=== PATIENT | female | born 1975 | race Caucasian/White ===

== ENCOUNTER 2017-04-29 12:49 | Emergency (ER) | payer MEDICAID ==
[2017-04-29 13:09] VITALS: BP 111/51; PULSE 51; RESP 16; TEMP 98.1; O2SAT 98
--- NOTE | 2017-04-29 13:44 | EDPHY ---
H & P Stated Complaint: fentanyl w/d Time Seen by Provider: 04/29/17 13:35 HPI/ROS: CHIEF COMPLAINT: Opiate withdrawal HISTORY OF PRESENT ILLNESS: The patient is a 42-year-old female who states she is trying to stop opiate use. She had been on fentanyl patches until 5 days ago. She was seen at the [facility] and given a prescription for clonidine to help with her symptoms. She states that this helped significantly but that she is on her last pill today. Her roommate took her pulse and felt that her her rate was in the 40s. They became concerned about withdrawal and called an ambulance. Here her heart rate has been in the 60s and has stable vital signs. She reports to me that she is currently asymptomatic. She would like a refill of her clonidine. REVIEW OF SYSTEMS: Constitutional: denies: chills, fever, recent illness, recent injury EENTM: denies: blurred vision, double vision, nose congestion Respiratory: denies: cough, shortness of breath Cardiac: denies: chest pain, irregular heart rate, lightheadedness, palpitations Gastrointestinal/Abdominal: denies: abdominal pain, diarrhea, nausea, vomiting, blood streaked stools Genitourinary: denies: dysuria, frequency, hematuria, pain Musculoskeletal: denies: joint pain, muscle pain Skin: denies: lesions, rash, jaundice, bruising Neurological: denies: headache, numbness, paresthesia, tingling, dizziness, weakness Hematologic/Lymphatic: denies: blood clots, easy bleeding, easy bruising Immunologic/allergic: denies: HIV/AIDS, transplant EXAM: GENERAL: Well-appearing, well-nourished and in no acute distress. HEAD: Atraumatic, normocephalic. EYES: Pupils equal round and reactive to light, extraocular movements intact, sclera anicteric, conjunctiva are normal. ENT: TMs normal, nares patent, oropharynx clear without exudates. Moist mucous membranes. NECK: Normal range of motion, supple without lymphadenopathy or JVD. LUNGS: Breath sounds clear to auscultation bilaterally and equal. No wheezes rales or rhonchi. HEART: Regular rate and rhythm without murmurs, rubs or gallops. ABDOMEN: Soft, nontender, normoactive bowel sounds. No guarding, no rebound. No masses appreciated. BACK: No CVA tenderness, no spinal tenderness, step-offs or deformities EXTREMITIES: Normal range of motion, no pitting or edema. No clubbing or cyanosis. NEUROLOGICAL: Cranial nerves II through XII grossly intact. Normal speech, normal gait. 5/5 strength, normal movement in all extremities, normal sensation PSYCH: Normal mood, normal affect. SKIN: Warm, dry, normal turgor, no visible rashes or lesions. Source: Patient Exam Limitations: No limitations - Personal History LMP (Females 10-55): Unknown Current Tetanus Diphtheria and Acellular Pertussis (TDAP): Unsure - Medical/Surgical History Hx Asthma: No Hx Chronic Respiratory Disease: No Hx Diabetes: No Hx Cardiac Disease: No Hx Renal Disease: No Hx Cirrhosis: No Hx Alcoholism: No Hx HIV/AIDS: No Hx Splenectomy or Spleen Trauma: No Other PMH: "unknown neurological disorder" - Social History Smoking Status: Never smoked Alcohol Use: Sober Drug Use: Other Constitutional: Initial Vital Signs Temperature (C) 36.7 C 04/29/17 13:06 Heart Rate 51 L 04/29/17 13:06 Respiratory Rate 16 04/29/17 13:06 Blood Pressure 111/51 L 04/29/17 13:06 O2 Sat (%) 98 04/29/17 13:06 O2 Delivery Mode Room Air Allergies/Adverse Reactions: Penicillins Allergy (Verified 04/29/17 13:09) Home Medications: Medication Instructions Recorded Ondansetron Odt [Zofran Odt 4 mg 4 mg PO Q4 PRN #10 tab 04/29/17 (RX)] clonIDINE [Catapres (*)] 0.1 mg PO Q6-8PRN PRN #7 tab 04/29/17 Medical Decision Making ED Course/Re-evaluation: The patient is essentially here for prescription refill. We also discussed other options. I will give her anti nausea medicine as well. She has stable vital signs and no complaints at this time. We discussed indications for returning. Differential Diagnosis: Partial list of the Differential diagnosis considered include but were not limited to; opiate abuse, withdrawal, anxiety, arrhythmia and although unlikely based on the history and physical exam, I also considered infection, head injury. I discussed these differential diagnoses and the plan with the patient as well as the usual and expected course. The patient understands that the diagnosis is provisional and that in medicine we are not always correct and that further workup is often warranted. Usual and customary warnings were given. All of the patient's questions were answered. The patient was instructed to return to the emergency department should the symptoms at all worsen or return, otherwise to followup with the physician as we discussed. Departure - Departure Disposition: Home, Routine, Self-Care Clinical Impression: Opiate withdrawal Condition: Fair Instructions: Clonidine (By mouth), Polysubstance Abuse (ED) Referrals: ELINA PICKERING [Other] - As per Instructions Prescriptions: clonIDINE [Catapres (*)] 0.1 mg PO Q6-8PRN PRN #7 tab PRN Reason: Agitation Ondansetron Odt [Zofran Odt 4 mg (RX)] 4 mg PO Q4 PRN #10 tab PRN Reason: Nausea & Vomiting
== END 2017-04-29 13:35 | disposition home or self-care (01) ==
DX: F11.23 Opioid dependence with withdrawal (principal)

== ENCOUNTER 2017-05-02 00:25 | Emergency (ER) | payer MEDICAID ==
[2017-05-02] MEDS ORDERED: HALOPERIDOL LACT 5 MG/ML INJ IM ONE (00:27)
[2017-05-02] MEDS ORDERED: HALOPERIDOL LACT 5 MG/ML INJ ONE (00:27)
[2017-05-02] MEDS ORDERED: NS 1,000 ML IV ONE (00:28)
--- NOTE | 2017-05-02 00:32 | EDPHY ---
H & P Time Seen by Provider: 05/02/17 00:50 HPI/ROS: HPI CHIEF COMPLAINT: Alcohol intoxication, combative behavior, spitting, biting HISTORY OF PRESENT ILLNESS: The patient is a 42-year-old female, she presents emergency room agitated combative and intoxicated with alcohol. She arrives in 4 point restraints. She is spitting and biting. Upon arrival she is intoxicated alcohol. She is extremely aggressive with staff requiring security at bedside. Also requiring 4 point restraints. She is trying to bite staff. Spitting at staff. I have ordered her 10 mg IM Haldol for staff says safety as well as the patient's safety. Unclear how much alcohol or drug she has had tonight. She will not answer any of my questions. Past Medical History: Alcohol use, history of heroin use Past Surgical History: Denies recent surgery Social History: Alcohol use and heroin use Family History: Unknown ROS REVIEW OF SYSTEMS: Limited due to patient's clinical intoxication and aggressive behavior. Exam Constitutional aggressive, combative, agitated, intoxicated, triage nursing summary reviewed, vital signs reviewed, awake/alert. Eyes normal conjunctivae and sclera, EOMI, PERRLA. HENT normal inspection, atraumatic, moist mucus membranes, no epistaxis, neck supple/ no meningismus, no raccoon eyes. Respiratory clear to auscultation bilaterally, normal breath sounds, no respiratory distress, no wheezing. Cardiovascular rate normal, regular rhythm, no murmur, no edema, distal pulses normal. Gastrointestinal soft, non-tender, no rebound, no guarding, normal bowel sounds, no distension, no pulsatile mass. Genitourinary no CVA tenderness. Musculoskeletal no midline vertebral tenderness, full range of motion, no calf swelling, no tenderness of extremities, no meningismus, good pulses, neurovascularly intact. Skin pink, warm, & dry, no rash, skin atraumatic. Neurologic intoxicated, agitated, aggressive and combative behavior, spitting and biting. Psychiatric aggressive Heme/Lymph/Immune no lymphadenopathy. Differential Diagnosis: Includes but is not limited to in a particular order drug intoxication, alcohol intoxication, drug overdose, aggressive behavior, underlying mental illness Medical Decision Making: Plan for this patient she will require 4 point restraints given how aggressive and combative she is. She required additionally IM Haldol 10 mg for sedation. This for patient's safety as well as staff safety. After she is appropriately sedated will obtain blood work including alcohol level drug screen. Re-evaluate. Re-evaluation: 0325: Patient received 10 mg IM Haldol for acute agitation. She is now resting comfortably. Vital signs are stable. Full quality assurance monitor. Heart rate 73, pulse ox 97% on room air. Patient is sleeping. 0428: Patient is now up ambulating without any difficulty. Stable gait. She is much more calm and pleasant. She is no longer hostile. She has no complaints and is ready for discharge. Source: Patient, EMS - Medical/Surgical History Hx Asthma: No Hx Chronic Respiratory Disease: No Hx Diabetes: No Hx Cardiac Disease: No Hx Renal Disease: No Hx Cirrhosis: No Hx Alcoholism: No Hx HIV/AIDS: No Hx Splenectomy or Spleen Trauma: No Other PMH: "unknown neurological disorder" - Social History Smoking Status: Never smoked Constitutional: Initial Vital Signs Temperature (C) 36.6 C 05/02/17 00:47 Heart Rate 80 05/02/17 00:47 Respiratory Rate 16 05/02/17 00:47 Blood Pressure 102/58 L 05/02/17 00:47 O2 Sat (%) 96 05/02/17 00:47 O2 Delivery Mode Room Air Allergies/Adverse Reactions: Penicillins Allergy (Verified 05/02/17 00:46) Home Medications: Medication Instructions Recorded Ondansetron Odt [Zofran Odt 4 mg 4 mg PO Q4 PRN #10 tab 04/29/17 (RX)] clonIDINE [Catapres (*)] 0.1 mg PO Q6-8PRN PRN #7 tab 04/29/17 Medical Decision Making - Data Points Medications Given: Discontinued Medications Haloperidol Lactate (Haldol Injection) 10 mg IM EDNOW ONE Stop: 05/02/17 00:28 Last Admin: 05/02/17 00:54 Dose: 10 mg Sodium Chloride (Ns) 1,000 mls @ 0 mls/hr IV ONCE ONE PRN Reason: Wide Open Stop: 05/02/17 00:29 Last Admin: 05/02/17 01:07 Dose: Not Given Departure - Departure Disposition: Home, Routine, Self-Care Clinical Impression: Alcoholic intoxication Qualifiers: Complication of substance-induced condition: uncomplicated Qualified Code(s): F10.920 - Alcohol use, unspecified with intoxication, uncomplicated Instructions: Alcohol Intoxication (ED), Abuse of Alcohol (ED) Referrals: NONE *PRIMARY CARE P,. [Primary Care Provider] - As per Instructions
[2017-05-02 00:54] VITALS: RESP 16; TEMP 97.9; O2SAT 96
[2017-05-02 04:45] VITALS: BP 110/66; PULSE 74
== END 2017-05-02 04:59 | disposition home or self-care (01) ==
LOC: EDUNIT#
DX: F10.920 Alcohol use, unspecified with intoxication, uncomplicated (principal)
CPT/HCPCS: J1630

== ENCOUNTER 2017-05-17 18:38 | Emergency (ER) | payer MEDICAID ==
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
[2017-05-17 19:06] VITALS: BP 125/75
== END 2017-05-17 19:14 | disposition home or self-care (01) ==
LOC: EDSEX 18:38 → MERGE 18:38
DX: F10.920 Alcohol use, unspecified with intoxication, uncomplicated (principal)

== ENCOUNTER 2017-06-26 09:40 | Emergency (ER) | payer SELFPAY ==
[2017-06-26 10:08] VITALS: BP 106/75
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
== END 2017-06-26 11:55 | disposition left against medical advice (07) ==
LOC: EEVIPCON 09:40
DX: T74.21XA Adult sexual abuse, confirmed, initial encounter (principal); S00.83XA Contusion of other part of head, initial encounter; Y07.9 Unspecified perpetrator of maltreatment and neglect; Y99.8 Other external cause status; Y93.89 Activity, other specified

== ENCOUNTER 2017-06-27 00:40 | Emergency (ER) | payer SELFPAY ==
[2017-06-27 00:45] VITALS: BP 99/70
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
[2017-06-27] MEDS ORDERED: CHLORDIAZEPOXIDE 25MG PREPK#6 BTL TAKEHOME ONE (02:46)
== END 2017-06-27 04:46 | disposition home or self-care (01) ==
DX: F10.239 Alcohol dependence with withdrawal, unspecified (principal)

== ENCOUNTER 2017-11-04 08:12 | Emergency (ER) | payer MEDICAID ==
[2017-11-04] MEDS ORDERED: HALOPERIDOL LACT 5 MG/ML INJ IM ONE (08:18)
[2017-11-04] MEDS ORDERED: LORazepam 2 MG/ML INJ IM ONE (08:18)
--- NOTE | 2017-11-04 08:21 | EDPHY ---
H & P Source: Patient Exam Limitations: Intoxication - Medical/Surgical History Hx Asthma: No Hx Chronic Respiratory Disease: No Hx Diabetes: No Hx Cardiac Disease: No Hx Renal Disease: No Hx Cirrhosis: No Hx Alcoholism: Yes Hx HIV/AIDS: No Hx Splenectomy or Spleen Trauma: No Other PMH: MS, FIBROMYALGIA, DEPRESSION, PTSD, ANXIETY, alcohol abuse, opiate abuse, meth abuse - Social History Smoking Status: Never smoked Alcohol Use: Heavy Drug Use: Other Time Seen by Provider: 11/04/17 08:12 HPI/ROS: CHIEF COMPLAINT: Hallucinate HISTORY OF PRESENT ILLNESS: The patient is a 42-year-old female with a history of bipolar, depression, PTSD, alcohol and polysubstance abuse who comes to the emergency department stating that she is hallucinating. Her boyfriend called police. She is alert and somewhat combative and had to be restrained. She however is smiling and laughing and talking about smiley faces and other things that she is hallucinating about. She also has a history of MS and fibromyalgia on chronic pain medication. She denied to paramedics taking any hallucinogens. No trauma. No reports of fever or recent illness. Severity: Severe Modifying factors: None REVIEW OF SYSTEMS: Unable to obtain secondary to condition EXAM: GENERAL: Happy, slightly combative, restrained. HEAD: Atraumatic, normocephalic. EYES: Pupils equal round and reactive to light, extraocular movements intact, sclera anicteric, conjunctiva are normal. ENT: TMs normal, nares patent, oropharynx clear without exudates. Moist mucous membranes. NECK: Normal range of motion, supple without lymphadenopathy or JVD. LUNGS: Breath sounds clear to auscultation bilaterally and equal. No wheezes rales or rhonchi. HEART: Regular rate and rhythm without murmurs, rubs or gallops. ABDOMEN: Soft, nontender, normoactive bowel sounds. No guarding, no rebound. No masses appreciated. BACK: No CVA tenderness, no spinal tenderness, step-offs or deformities EXTREMITIES: Normal range of motion, no pitting or edema. No clubbing or cyanosis. NEUROLOGICAL: Cranial nerves II through XII grossly intact. Normal speech. 5/ 5 strength, normal movement in all extremities, normal sensation, normal reflexes PSYCH: Unable to assess, talking and shouting but overall pleasant demeanor SKIN: Warm, dry, normal turgor, no visible rashes or lesions. (Omkar Murcia) Constitutional: Initial Vital Signs Temperature (C) 36.6 C 11/04/17 08:12 Heart Rate 126 H 11/04/17 08:12 Respiratory Rate 20 11/04/17 08:12 Blood Pressure 129/100 H 11/04/17 08:12 O2 Sat (%) 96 11/04/17 08:12 O2 Delivery Mode Room Air Allergies/Adverse Reactions: Penicillins Allergy (Verified 05/02/17 00:46) Home Medications: Medication Instructions Recorded Buspar (*) 06/26/17 Gabapentin 06/26/17 Oxybutynin Chloride 06/26/17 Oxycodone HCl 06/26/17 Paxil 06/26/17 fentaNYL 06/26/17 Medical Decision Making ED Course/Re-evaluation: 2152: Patient re-evaluate this time she is calm and cooperative. She denies wanting to hurt herself or anybody else she is not suicidal homicidal. 4: [facility] spoke with her and spoke with , patient has longstanding history of mental health including polysubstance abuse, previous SI x5, and close relatives with commit suicide including her brother possible father. Patient has a history of PTSD, depression, substance abuse patient will need mental health evaluation. Plan will be for mental health evaluation this morning. Patient signed over at 11:00 p.m. Shift change to Dr. Lance. Pending evl. (Nils Kirkland) 6:50 a.m.- The patient was evaluated by the mental health provider. M1 hold can be dropped at this time. The patient is now awake and alert, here with her boyfriend who feels comfortable taking her home. She does not meet criteria for an M1 hold. She was [facility]. She is a client at [facility] and has a treating psychiatrist. (Neda Lance) 2:00 p.m. the patient is improving. She is somewhat sleepy from the Haldol but is no longer hallucinating and can answer questions appropriately. Her boyfriend is here with her now. We discussed her history of substance abuse and that often times she has similar symptoms with substance abuse. She does have a history of bipolar and PTSD but has never had schizophrenia. He is not aware of previous hallucinations from psychiatric disorders in the absence of substances. I suspect that she is simply intoxicated and will continue to await sobriety. If she is acting normal and sober and a couple of hours will plan to lift her hold and discharge her home with her boyfriend. 2:55 p.m. Care transferred to Dr. Nils Kirkland. (Omkar Murcia) Differential Diagnosis: Partial list of the Differential diagnosis considered include but were not limited to; polysubstance abuse, bipolar, hallucinations and although unlikely based on the history and physical exam, I also considered head injury, infection , seizure. I discussed these differential diagnoses and the plan with the patient as well as the usual and expected course. The patient understands that the diagnosis is provisional and that in medicine we are not always correct and that further workup is often warranted. Usual and customary warnings were given. All of the patient's questions were answered. The patient was instructed to return to the emergency department should the symptoms at all worsen or return, otherwise to followup with the physician as we discussed. ( Omkar Murcia) - Data Points Laboratory Results: Laboratory Results 11/04/17 08:00 11/04/17 08:00 Medications Given: Discontinued Medications Haloperidol Lactate (Haldol Injection) 5 mg IM EDNOW ONE Stop: 11/04/17 08:19 Last Admin: 11/04/17 09:02 Dose: 5 mg Lorazepam (Ativan Injection) 1 mg IM EDNOW ONE Stop: 11/04/17 08:19 Last Admin: 11/04/17 09:03 Dose: 1 mg Departure - Departure Disposition: Home, Routine, Self-Care Clinical Impression: Polysubstance abuse, Bipolar 1 disorder Condition: Fair Instructions: Bipolar Disorder (ED), Polysubstance Abuse (ED) Referrals: Patient,NotPresent [Primary Care Provider] - As per Instructions
[2017-11-04 08:29] LABS: PLATELET COUNT 308 10^3/uL (150-400)
[2017-11-05 07:40] VITALS: BP 113/68
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
--- NOTE | 2017-11-05 08:52 | ASMTTCLDSP ---
TLC Discharge Disposition Disposition: Answers: Discharge If Answers: Yes DISCHARGED: Patient/family given suicide hotline info & SAMHSA brochure? Disposition Notes: Notes: Pt stated commitment or ability to keep self safe, denied thoughts of self harm or harm to others. Pt expressed a desire to f/u with [facility] providers. Pt was given local hotline information and SAMHSA brochure After an Attempt and encouraged to follow up with psychiatrist, Juliane Liu MD at [facility] and therapist, Fallon Pierce at [facility]. Discharge Concerns/Recommendations: Notes: In consultation with [facility] ED physician, Neda Lance MD, Dr. Lance concurred that pt does not appear to meet 27-65 criteria requiring psychiatric hospitalization as pt does not appear to be an imminent risk of harm to self/others/gravely disabled due to a mental illness condition. Dr. Lance provided verbal order read back vacating M1 hold at 0715 hrs. Was patient given the Answers: Not applicable Inpatient Behavioral Health Prohibited Belongings List while in the ED? Psychiatrist vacating M1 Neda Lance MD Hold: Date and time M1 hold 11/05/2017 07:15 AM vacated (time format is hh:mm): Type of Hold: Answers: M1/72-hour Hold Hold initiated by: Answers: Police Date Signed: 11/05/2017 08:52 AM Electronically Signed By:Yogesh Call
== END 2017-11-05 07:38 | disposition home or self-care (01) ==
LOC: EDUNIT#
DX: F19.20 Other psychoactive substance dependence, uncomplicated (principal); F30.2 Manic episode, severe with psychotic symptoms
CPT/HCPCS: 80305; G0480; J1630; J2060

== ENCOUNTER 2017-12-20 00:59 | Emergency (ER) | payer MEDICAID ==
[2017-12-20] MEDS ORDERED: NS 1,000 ML IV ONE (01:05)
--- NOTE | 2017-12-20 01:08 | EDPHY ---
H & P Time Seen by Provider: 12/20/17 01:03 HPI/ROS: CHIEF COMPLAINT: Altered mental status HISTORY OF PRESENT ILLNESS: Patient is a 42-year-old homeless female with a history methamphetamine and fentanyl abuse who was found outside today by her boyfriend. He was concerned and started CPR. When paramedics got there she did have a pulse but was minimally responsive. They gave her Narcan 2 mg with no improvement. Here she denies complaints other than being cold. She denies pain. She states she is not sick. She remains minimally cooperative however. She denies drug or alcohol use today. Severity: Severe Modifying factors: None REVIEW OF SYSTEMS: Unable to obtain secondary to condition EXAM: GENERAL: Shivering, keeping eyes closed, turning head side to side, minimally cooperative HEAD: Atraumatic, normocephalic. EYES: Pupils 2+, equal round and reactive to light, extraocular movements intact, sclera anicteric, conjunctiva are normal. ENT: TMs normal, nares patent, oropharynx clear without exudates. Moist mucous membranes. NECK: Normal range of motion, supple without lymphadenopathy or JVD. LUNGS: Breath sounds clear to auscultation bilaterally and equal. No wheezes rales or rhonchi. HEART: Regular rate and rhythm without murmurs, rubs or gallops. ABDOMEN: Soft, nontender, normoactive bowel sounds. No guarding, no rebound. No masses appreciated. BACK: No CVA tenderness, no spinal tenderness, step-offs or deformities EXTREMITIES: Normal range of motion, no pitting or edema. No clubbing or cyanosis. NEUROLOGICAL: Cranial nerves II through XII grossly intact. Normal speech, normal gait. 5/5 strength, normal movement in all extremities, normal sensation , normal reflexes PSYCH: Uncooperative, SKIN: Warm, dry, normal turgor, no visible rashes or lesions. Source: Patient, EMS Exam Limitations: Intoxication - Medical/Surgical History Hx Asthma: No Hx Chronic Respiratory Disease: No Hx Diabetes: No Hx Cardiac Disease: No Hx Renal Disease: No Hx Cirrhosis: No Hx Alcoholism: Yes Hx HIV/AIDS: No Hx Splenectomy or Spleen Trauma: No Other PMH: MS, FIBROMYALGIA, DEPRESSION, PTSD, ANXIETY, alcohol abuse, opiate abuse, meth abuse - Family History Significant Family History: No pertinent family hx - Social History Smoking Status: Never smoked Alcohol Use: Heavy Drug Use: Other Constitutional: Initial Vital Signs Temperature (C) 36.6 C 12/20/17 01:09 Heart Rate 108 H 12/20/17 01:09 Respiratory Rate 20 12/20/17 01:09 Blood Pressure 117/104 H 12/20/17 01:09 O2 Sat (%) 95 12/20/17 01:09 O2 Delivery Mode Room Air Allergies/Adverse Reactions: Penicillins Allergy (Verified 05/02/17 00:46) Home Medications: Medication Instructions Recorded Buspar (*) 06/26/17 Gabapentin 06/26/17 Oxybutynin Chloride 06/26/17 Oxycodone HCl 06/26/17 Paxil 06/26/17 fentaNYL 06/26/17 Medical Decision Making - Diagnostics EKG Interpretation: An EKG obtained and was read and documented in trace view. Please see trace view for full reading and report. Sinus tachycardia, no acute ischemic changes Imaging: Discussed imaging studies w/ call or contact centre team leader Radiologist ED Course/Re-evaluation: The patient appears to be suffering from intoxication or withdrawal. Will obtain lab work and observe. 1:40 a.m. The patient continues to be uncomfortable and cold. She denies pain. She appears to be in opiate withdrawal although she denies this. I will treat her with clonidine. We have previously given her Ativan. 2:15 a.m. the patient continues to be uncomfortable and is now complaining of being too hot and is writhing around in bed. She states that she thought people were in the room and they were not. I will treat her with a small dose of Haldol. 5:00 a.m. the patient has done extremely well ever since receiving Haldol. She has been sleeping with stable vital signs. 6:20 a.m. the patient is sleeping comfortably. She is easily arousable. Her heart rate is in the 90s and blood pressure is stable. Normal saturations. She is mentating normally. She states that she has raised to go home. She denies illness or complaint. Will discharge her at this time. Discussed indications for returning. Differential Diagnosis: Partial list of the Differential diagnosis considered include but were not limited to; substance abuse, withdrawal and although unlikely based on the history and physical exam, I also considered cardiac arrest, seizure, head injury, infection. - Data Points Laboratory Results: Laboratory Results 12/20/17 01:03 11/10/18 01:03 Medications Given: Discontinued Medications Clonidine (Catapres) 0.1 mg PO EDNOW ONE Stop: 12/20/17 01:41 Last Admin: 12/20/17 01:42 Dose: 0.1 mg Haloperidol Lactate (Haldol Injection) 5 mg IVP EDNOW ONE Stop: 12/20/17 02:03 Last Admin: 12/20/17 02:03 Dose: 5 mg Sodium Chloride (Ns) 1,000 mls @ 0 mls/hr IV EDNOW ONE; Wide Open PRN Reason: Protocol Stop: 12/20/17 01:06 Last Admin: 12/20/17 01:15 Dose: 1,000 mls Lorazepam (Ativan Injection) 1 mg IVP EDNOW ONE Stop: 12/20/17 01:13 Last Admin: 12/20/17 01:15 Dose: 1 mg Departure - Departure Disposition: Home, Routine, Self-Care Clinical Impression: Substance abuse Condition: Fair Instructions: Polysubstance Abuse (ED) Referrals: Patient,NotPresent [Unknown] - As per Instructions [facility],. [Clinic] - As per Instructions
[2017-12-20] MEDS ORDERED: LORazepam 2 MG/ML INJ IVP ONE (01:12)
[2017-12-20 01:13] LABS: PLATELET COUNT 324 10^3/uL (150-400)
[2017-12-20] MEDS ORDERED: HALOPERIDOL LACT 5 MG/ML INJ IVP ONE (02:02)
[2017-12-20] MEDS ORDERED: HALOPERIDOL LACT 5 MG/ML INJ ONE (02:08)
--- NOTE | 2017-12-20 02:30 | CPEKG ---
Test Reason : OPEN Blood Pressure : / mmHG Vent. Rate : 109 BPM Atrial Rate : 109 BPM P-R Int : 096 ms QRS Dur : 076 ms QT Int : 472 ms P-R-T Axes : 000 053 254 degrees QTc Int : 636 ms Sinus tachycardia Prolonged QT interval Confirmed by Omkar Murcia ([id number]) on 12/20/2017 2:29:25 AM Referred By: Confirmed By:Omkar Murcia
[2017-12-20 06:58] VITALS: BP 102/61
== END 2017-12-20 06:50 | disposition home or self-care (01) ==
LOC: EDUNIT#
DX: R41.82 Altered mental status, unspecified (principal); F15.20 Other stimulant dependence, uncomplicated; E86.9 Volume depletion, unspecified; G35 Multiple sclerosis; F10.10 Alcohol abuse, uncomplicated; Z59.0 Homelessness
CPT/HCPCS: G0480; J1630; J2060